=== PATIENT | female | born 1990 | race African-American/Black ===

== ENCOUNTER 2021-07-07 13:47 | Emergency (ER) | payer BC ==
[2021-07-07] MEDS ORDERED: Boostrix 0.5 ML (Tdap) VIAL ONE (14:20)
[2021-07-07] MEDS ORDERED: Lidocaine 1% PF 5 ML VIAL ONE (14:20)
== END 2021-07-07 15:00 | disposition home or self-care (01) ==
LOC: BURERS 13:47
DX: S61.512A Laceration without foreign body of left wrist, initial encounter (principal); Z23 Encounter for immunization; W26.0XXA Contact with knife, initial encounter
CPT/HCPCS: 12001; 90471; 90715

== ENCOUNTER 2021-07-17 07:41 | Emergency (ER) | payer BC | END 2021-07-17 07:58 | disposition home or self-care (01) | LOC: BURERS 07:41 | DX: S61.512D Laceration without foreign body of left wrist, subsequent encounter (principal) ==